=== PATIENT | female | born 1955 | race Caucasian/White ===

== ENCOUNTER 2025-03-16 09:54 | Emergency (ER) | payer MEDICARE, SELFPAY ==
[2025-03-16 10:04] VITALS: BP 139/76; PULSE 70; RESP 16; TEMP 36.6; O2SAT 96; BMI 22.4
--- NOTE | 2025-03-16 10:07 | XR_ITS ---
Examination: CT abdomen with intravenous contrast. CT pelvis with intravenous contrast. 2-D sagittal and coronal reconstructions. Date and time of exam: 03/16/2025 3:10 PM Indication: Left-sided abdominal pain and swelling COMPARISON: 04/12/2021 CTDI: vol (mGy) 12.3 DLP: (mGycm) 446 Technique: Axial sections of the abdomen and pelvis have been obtained post contrast intravenous injection 3 mm slice thickness. 2-D coronal and sagittal reconstructions were obtained. Low dose protocols were performed. One or more of the following dose reduction techniques were used; automated exposure control, adjustment of the mA and/or KV according to patient size, use of iterative reconstruction technique. Findings: Incidental images of the lung bases demonstrates that they are clear. There are no basilar infiltrates or pleural effusions. The heart size is normal. Imaging through the upper abdomen demonstrates a normal-appearing liver, spleen, pancreas, and stomach. Gallbladder surgically absent. The adrenal glands are unremarkable. Both kidneys are normal with respect to size shape and position. There is no evidence of a renal mass, nephrolithiasis or hydronephrosis. Diffuse atherosclerosis of the aorta. The abdominal aorta is otherwise unremarkable. There is no periaortic lymphadenopathy. The small bowel loops have a normal appearance. Mucosal thickening of the sigmoid colon. Visualized colon otherwise unremarkable There is no evidence of an intra-abdominal inflammatory process. The appendix is visualized and is not distended or inflamed. The urinary bladder is not distended and appears entirely normal. The prostate is not enlarged. There is no evidence of an abdominal wall hernia. The osseous structures appear intact. Impression: Diffuse mucosal thickening in the sigmoid colon consistent with colitis. Otherwise normal exam.
--- NOTE | 2025-03-16 10:08 | EDRME_ITS ---
Rapid Medical Screening Exam RME Arrival date/time: 03/16/25 09:54 69-year-old female presents to the emergency department for complaints of a 2- month history of left-sided abdominal pain abdominal swelling Chief Complaint: Abdominal Pain Vital signs: Vital Signs Temperature 97.8 F 03/16/25 10:04 Pulse Rate 70 03/16/25 10:04 Respiratory Rate 16 03/16/25 10:04 Blood Pressure 139/76 H 03/16/25 10:04 Pulse Oximetry (%) 96 03/16/25 10:04 Oxygen Delivery Method Room Air 03/16/25 10:04
[2025-03-16 10:28] LABS: Basophils # (Auto) 0.1 Thou/mm3 (0.0-0.2); Basophils % (Auto) 0 % (0-2.5); Eosinophils # (Auto) 0.3 Thou/mm3 (0.0-0.5); Eosinophils % (Auto) 2 % (0-10); Hematocrit 40.6 % (36.0-46.0); Hemoglobin 13.7 g/dL (12.0-16.0); Immature Granulocytes Auto 0.05 Thou/mm3 (0.00-0.00); Lymphocytes # (Auto) 3.3 Thou/mm3 (1.0-4.8); Lymphocytes % (Auto) 29 % (10-50); Mean Corpuscular HGB Conc 33.7 g/dl (31.0-37.0); Mean Corpuscular Hemoglobin 29.6 pg (25.0-35.0); Mean Corpuscular Volume 88 fL (80-100); Monocytes # (Auto) 0.7 Thou/mm3 (0.0-0.8); Monocytes % (Auto) 6 % (0-12); Neutrophils # (Auto) 7.1 Thou/mm3 (1.8-7.7); Neutrophils % (Auto) 62 % (37-80); Nucleated Red Blood Cell # 0.00 Thou/mm3 (0.00-0.00); Nucleated Red Blood Cell % 0 /100 WBC (0); Platelet Count 303 Thou/mm3 (140-440); RDW Standard Deviation 39.8 fL (36.4-46.3); Red Blood Count 4.63 Miln/mm3 (4.00-5.20); White Blood Count 11.5 Thou/mm3 (3.6-11.0)
[2025-03-16 10:48] LABS: Sed Rate (ESR) 32 mm/hr (0-30)
[2025-03-16 10:52] LABS: Alanine Aminotransferase 11 U/L (10-49); Albumin, Serum 5.1 gm/dL (3.4-4.8); Albumin/Globulin Ratio 2.1 (1.2-2.2); Alkaline Phosphatase 78 U/L (46-116); Anion Gap 13 (7-16); Aspartate Amino Transferase 14 U/L (0-34); BUN/Creatinine Ratio 15 Ratio (12-20); Bilirubin,Total 0.7 mg/dL (0.3-1.2); Blood Urea Nitrogen 16 mg/dL (9-23); C-Reactive Protein 0.6 mg/dL (0.0-0.9); Calcium 9.9 mg/dL (8.3-10.6); Calcium (Corrected) 9.9 mg/dL (8.5-10.1); Carbon Dioxide 29.1 mMol/L (20.0-31.0); Chloride 102 mMol/L (98-107); Creatinine (Component) 1.1 mg/dL (0.6-1.3); Estimated Creatinine Clearance 42.2 mL/min (>60); Globulin 2.4 gm/dL (2.3-3.5); Glucose 150 mg/dL (74-106); Lipase 30 U/L (12-53); Osmolality,Calculated 291 (275-295); Potassium 3.2 mMol/L (3.4-5.1); Sodium 144 mMol/L (136-145); Total Protein 7.5 gm/dL (5.7-8.2); eGFR 54 See Note
[2025-03-16 10:57] LABS: Collection Type, Urine Clean Catch
[2025-03-16 11:11] LABS: Bacteria,Urine 4+; Bilirubin,Urine Negative (Negative); Blood,Urine 2+ (Negative); Color,Urine Yellow (Lt Yel-Yel); Culture Indicated,Urine Contaminated; Glucose, Urine Negative (Negative); Ketones,Urine Negative (Negative); Leukocyte Esterase,Urine Positive (Negative); Nitrite,Urine Negative (Negative); PH,Urine 6.0 (5.0-7.0); Protein,Urine 2+ (Neg - Trace); RBC,Urine 67 /hpf (0-3); Specific Gravity,Urine 1.024 (1.001-1.035); Squamous Epithelial Cell,Urine 14 /hpf (0-5); Urobilinogen,Urine Negative mg/dL (0.0-1.0); WBC,Urine 2851 /hpf (0-5)
[2025-03-16 11:15] LABS: Clarity,Urine Turbid (Clear/Hazy)
--- NOTE | 2025-03-16 14:05 | PD.EDABDPN ---
ED Abdominal Pain RME/HPI General Chief Complaint: Abdominal Pain Stated complaint: LARGE SWOLLEN AREA L) ABD/SIDE Time seen by provider: 03/16/25 10:37 Arrival date/time: 03/16/25 09:54 Source: patient and family Mode of arrival: ambulatory Limitations: no limitations RME / HPI RME / HPI narrative: 69-year-old female presents to the emergency department for complaints of a 2-month history of left-sided abdominal pain abdominal swelling. Patient also endorses significant dysuria. At times feels that she has to work hard to empty her bladder or does not empty her bladder completely. Denies fevers chills nausea vomiting chest pain recent travel sick contacts. Patient sees Dr. Jara her urologist. Sees this provider for interstitial cystitis. Patient takes medications for interstitial cystitis. States that her symptoms are worse thsn prior. No f,c,n,v, recent travel or sick contacts Related Data Home Medications ?Medication ?Instructions ?Recorded ?Confirmed atenolol 100 mg tablet 100 mg PO DAILY ##0 07/26/13 11/21/23 glipizide 5 mg tablet 10 mg PO BID ##0 07/26/13 11/21/23 lovastatin 40 mg tablet 40 mg PO HS ##0 07/26/13 11/21/23 insulin detemir U-100 100 unit/mL 65 unit subcut BID 03/24/18 11/21/23 subcutaneous solution (Levemir U-100 Insulin) lisinopril 20 1 tab PO QDAY 03/24/18 11/21/23 mg-hydrochlorothiazide 25 mg tablet sitagliptin phosphate 100 mg 100 mg PO QDAY 03/24/18 11/21/23 tablet (Januvia) metformin 1,000 mg tablet 1,000 mg PO BID 07/17/18 11/21/23 Previous Rx's ?Medication ?Instructions ?Recorded cephalexin 750 mg capsule (Keflex) 750 mg PO BID #14 caps 04/12/21 tramadol 50 mg tablet 50 mg PO TID PRN pain #14 tabs 04/12/21 meloxicam 7.5 mg tablet 7.5 mg PO QDAY #45 tabs 11/14/23 cephalexin 500 mg capsule 500 mg PO QID #20 caps 03/16/25 Allergies Allergy/AdvReac Type Severity Reaction Status Date / Time acetaminophen (From [facility]) Allergy Intermediate Rash Verified 03/16/25 09:58 hydrocodone (From [facility]) Allergy Intermediate Rash/bliste Verified 03/16/25 09:58 rs pregabalin Allergy Unknown ALOC/ITCHIN Verified 03/16/25 09:58 ESS Adhesives Allergy Severe PEELS SKIN Uncoded 11/21/23 09:55 OFF ED Exam General Limitations: Present no limitations Head Head exam: Present atraumatic and normocephalic Eye Eye exam: Present normal appearance, PERRL and EOMI ENT ENT exam: Present normal exam and normal oropharynx Neck Neck exam: Present normal inspection and full ROM Chest Chest inspection: Present normal inspection Respiratory Respiratory exam: Absent respiratory distress Cardiovascular Cardiovascular exam: Present regular rate Abdominal Exam Abdominal exam: Present soft and distention (Mild distention appreciated on the left side, no rebound or guarding) Extremities Exam Extremities exam: Present normal inspection and full ROM Neurological Exam Neurological exam: Present alert, oriented X3, CN II-XII intact and normal gait; Absent motor sensory deficit Psychiatric Psychiatric exam: Present normal affect and normal mood Skin Skin exam: Present warm and dry Course Quality Measures none Orders Category Date Time Status CT Screening NOW Care 03/16/25 10:07 Completed Insert IV NOW Care 03/16/25 10:[address] abdomen pelvis w con Stat Exams 03/16/25 10:07 Completed CBC Stat Lab 03/16/25 10:10 Completed CRP [C-Reactive Protein] Stat Lab 03/16/25 10:10 Completed Comprehensive Metabolic Panel Stat Lab 03/16/25 10:10 Completed ESR [Sed Rate (ESR)] Stat Lab 03/16/25 10:10 Completed Lipase Stat Lab 03/16/25 10:10 Completed UA, C/S IF [Urinalysis, C/S if Indicated] Stat Lab 03/16/25 10:45 Completed cefTRIAXone [Rocephin] 1,000 mg Med 03/16/25 14:06 Discontinued Lidocaine 1% 20 ml [Xylocaine 1% 20 ML] 2.1 ml IM X1 cefTRIAXone/D5w 1gm IV premix [Rocephin/D5w 1gm IV Med 03/16/25 14:37 Discontinued premix] 1 gm in 50 ml IV X1 metroNIDAZOLE [Flagyl] Med 03/16/25 18:32 Discontinued 500 mg PO X1 ONE Vital Signs Vital signs: Vital Signs Temperature 97.8 F 08/27/25 10:04 Pulse Rate 70 03/16/25 10:04 Respiratory Rate 16 03/16/25 10:04 Blood Pressure 139/76 H 03/16/25 10:04 Pulse Oximetry (%) 96 03/16/25 10:04 Oxygen Delivery Method Room Air 03/16/25 10:04 Abdominal Pain [facility] Narrative [facility] Narrative:: Patient is a 69-year-old female with medical history notable for interstitial cystitis is in the emerged from with concerns for abdominal pain and increased urinary frequency and dysuria. Vital signs and exam as listed. Concern for urinary tract infection, pyelonephritis, intra-abdominal abscess, malignancy among others. Ordered labs, CT abdomen pelvis with contrast labs with evidence of leukocytosis 11.5, no left shift. Patient with hypokalemia potassium 3.2 will replete in the emergency department. Evidence of other significant metabolic disturbance. Urine with 2000 and white blood cells will treat for urinary tract infection. Provided patient with antibiotics. CT abd pelvis identified colitis. Abx provided. On re-eval patient HD stable, NAD. Will dc to home with close return precautions and follow up with pcp Patient data External records reviewed:: [facility] previous records Clinical information provided by:: patient and family Social determinants that could affect healthcare access:: none Patient has the following chronic illnesses:: See MDM How is presenting disease/condition affected by chronic disease/condition?: exacerbated by Evaluation data The following diagnostics were reviewed and interpreted by me:: lab results and radiology exam(s) Lab and/or radiology exams considered but not ordered:: None Interpretation Summary: See MDM Medications / Prescriptions Medications or Prescriptions considered but not ordered:: None Medication administrations:: Medication Administration History Discontinued Medications Ceftriaxone Sodium 1,000 mg/ (Lidocaine HCl 2.1 ml) 0 mg IM X1 ONE Stop: 03/16/25 14:07 Last Admin: 03/16/25 15:41 Dose: Not Given Documented By: JIMY Non-Admin Reason: Discontinued Ceftriaxone Sodium/Dextrose (Rocephin/D5w 1gm Iv Premix) 1 gm in 50 mls @ 100 mls/hr IV X1 ONE Stop: 03/16/25 15:06 Last Infusion: 03/16/25 16:21 Dose: Infused Documented By: Admin: 03/16/25 15:41 Dose: 100 mls/hr Documented By: VG Metronidazole (Metronidazole 250 Mg Tablet) 500 mg PO X1 ONE Stop: 03/16/25 18:33 See above Consultations Consultation(s) initiated? (list below): No Diagnosis Differential diagnosis abdominal pain: other (see mdm) Most likely diagnosis given after review of the tests above:: see mdm Admission Indicated Admission indicated?: not indicated Admission Request Was there a request for admission?: No Disposition Plan Disposition Plan: Discharge Discharge Attestation Discharge Attestation: The patient and all family members were given an opportunity to ask questions and understood the discharge instructions. Discharge instructions specifically effects, indications for sooner follow up or return to the emergency department, and the expected course of current diagnosis. Patient condition: Stable Discharge Plan Plan Patient Disposition: HOME (Self Care) Prescriptions/Referrals Prescriptions/Med Rec: New cephalexin 500 mg capsule 500 mg PO QID Qty: 20 0RF No Action meloxicam 7.5 mg tablet 7.5 mg PO QDAY Qty: 45 3RF atenolol 100 MG tablet 100 mg PO DAILY Qty: 0 lovastatin 40 MG tablet 40 mg PO HS Qty: 0 glipizide 5 MG tablet 10 mg PO BID Qty: 0 lisinopril-hydrochlorothiazide 20-25 mg Tablet 1 tab PO QDAY insulin detemir U-100 [Levemir U-100 Insulin] 100 unit/mL Solution 65 unit SUBCUT BID sitagliptin phosphate [Januvia] 100 mg Tablet 100 mg PO QDAY cephalexin [Keflex] 750 mg capsule 750 mg PO BID Qty: 14 0RF tramadol 50 mg tablet 50 mg PO TID PRN (Reason: pain) Qty: 14 0RF metformin 1,000 mg Tablet 1,000 mg PO BID Referrals: No Primary/Family,Physician [Primary Care Provider] - In 1 week Problem List Clinical Impression: Urinary tract infection, Colitis Patient/Caregiver Discharge Instructions Education Materials: ED CYSTITIS Female Adult Additional Instructions: Please follow-up with your primary care doctor within the next 1 to 2 days. Take antibiotics as prescribed. Return to the emergency department if you have worsening symptoms or new symptoms or concern. I highly recommend that you follow-up with your urologist, and also request follow-up with a water registrar for further management of your colitis. Print Language: Malaysian Stand Alone Forms: Lina Award Info., Patient Portal Info Letter
[2025-03-16] MEDS: cefTRIAXone/D5w 1gm IV premix 1 GM/50 ML BAG IV (15:41)
== END 2025-03-16 19:02 | disposition home or self-care (01) ==
PROVIDERS: Nurse Practitioner Primary Care; Emergency Provider Emergency Medicine
DX: K52.9 Noninfective gastroenteritis and colitis, unspecified (principal); N39.0 Urinary tract infection, site not specified
CPT/HCPCS: 36415; 74177; 80053; 81001; 83690; 85025; 85652; 86140; 96365; 99283; A4649; J0696; Q9967